=== PATIENT | female | born 1950 | race Caucasian/White ===

== ENCOUNTER → 2016-05-07 | Outpatient (CLI) | payer OTHER, MEDICARE | LOC: BMCIMAGING 11:34 | PROVIDERS: ATTEND Midwife | DX: N83.9 Noninflammatory disorder of ovary, fallopian tube and broad ligament, unspecified (principal); Z90.710 Acquired absence of both cervix and uterus ==

== ENCOUNTER → 2016-05-21 | Outpatient (CLI) | payer OTHER, MEDICARE ==
[~2016-05-21] MED LIST: GADOBUTROL 10 ML VIAL IVP ONE
[2016-05-21 13:30] LABS: CREATININE 0.8 mg/dL (0.6-1.0); GLOMERULAR FILTRATION RATE > 60
== END ==
LOC: FIMAGING 12:27
PROVIDERS: ATTEND Midwife
DX: N83.8 Other noninflammatory disorders of ovary, fallopian tube and broad ligament (principal)
CPT/HCPCS: 72197; A9585

== ENCOUNTER → 2016-11-12 | Outpatient (CLI) | payer OTHER, MEDICARE | LOC: BMCIMAGING 15:36 | PROVIDERS: ATTEND Podiatrist Foot & Ankle Surgery | DX: M21.611 Bunion of right foot (principal); M20.41 Other hammer toe(s) (acquired), right foot; M20.11 Hallux valgus (acquired), right foot; M21.41 Flat foot [pes planus] (acquired), right foot; M77.31 Calcaneal spur, right foot ==

== ENCOUNTER → 2017-04-20 | Outpatient (CLI) | payer OTHER, MEDICARE | LOC: FIMAGING 13:09 | PROVIDERS: ATTEND Obstetrics & Gynecology | DX: Z12.31 Encounter for screening mammogram for malignant neoplasm of breast (principal); Z13.820 Encounter for screening for osteoporosis; M85.80 Other specified disorders of bone density and structure, unspecified site; Z78.0 Asymptomatic menopausal state; Z80.3 Family history of malignant neoplasm of breast ==

== ENCOUNTER 2018-02-14 10:58 | Day surgery (SDC) | payer OTHER, MEDICARE ==
[2018-02-14] MEDS ORDERED: BUPIVACAINE 0.5% 30 ML SDV ONE (11:50)
[2018-02-14] MEDS ORDERED: BACITRACIN 50,000 UNITS/10 ML SYR IRR ONE (11:51)
[2018-02-14] MEDS ORDERED: LR 1,000 ML IV ONE (11:53)
[2018-02-14] MEDS ORDERED: MIDAZOLAM 2 MG/2 ML VIAL IVP ONE (13:45)
--- NOTE | 2018-02-14 13:45 | PDANEPAE ---
ANE History of Present Illness R 2nd MPJ osteotomy ANE Past Medical History - Cardiovascular History Hx Hypertension: Yes Hx Arrhythmias: No Hx Chest Pain: No Hx Coronary Artery / Peripheral Vascular Disease: No Hx CHF / Valvular Disease: No Hx Palpitations: No - Pulmonary History Hx COPD: No Hx Asthma/Reactive Airway Disease: No Hx Recent Upper Respiratory Infection: No Hx Oxygen in Use at Home: No Hx Sleep Apnea: No Sleep Apnea Screening Result - Last Documented: Negative - Neurologic History Hx Cerebrovascular Accident: No Hx Seizures: No Hx Dementia: No - Endocrine History Hx Diabetes: No - Renal History Hx Renal Disorders: No - Liver History Hx Hepatic Disorders: No - Neurological & Psychiatric Hx Hx Neurological and Psychiatric Disorders: No - Cancer History Hx Cancer: No - Congenital Disorder History Hx Congenital Disorders: No - GI History Hx Gastrointestinal Disorders: No - Other Health History Other Health History: wears glasses for reading. eczema. mild knee arthritis - Chronic Pain History Chronic Pain: No - Surgical History Prior Surgeries: hysterectomy. oopherectomy. knee arthroscopies x 2, left ANE Review of Systems Review of systems is: negative Review of Systems: - Exercise capacity METS (RN): 5 METS ANE Patient History - Allergies Allergies/Adverse Reactions: No Known Allergies Allergy (Verified 02/01/18 16:53) - Home Medications Home medications: home medication list seen and reviewed Home Medications: Lisinopril 02/24/09 [Last Taken 02/13/18] Vagifem 02/24/09 [Last Taken 02/13/18] Adult One Daily Multivit Tab 02/01/18 [Last Taken 1 Week Ago ~02/07/18] Probiotic 02/01/18 [Last Taken 3 Days Ago ~02/11/18] Vitamin D3 02/01/18 [Last Taken 1 Week Ago ~02/07/18] - NPO status NPO Since - Liquids (Date): 02/14/18 NPO Since - Liquids (Time): 08:00 NPO Since - Solids (Date): 02/13/18 NPO Since - Solids (Time): 21:00 - Anes Hx Anes Hx: post operative nausea - Smoking Hx Smoking Status: Never smoked - Family Anes Hx Family Anes Hx: none Family Hx Anesthesia Complications: none ANE Labs/Vital Signs - Vital Signs Vital Signs: reviewed preoperatively; see RN documention for details Blood Pressure: 172/99 Heart Rate: 75 Respiratory Rate: 14 O2 Sat (%): 97 Height: 160.02 cm Weight: 54.431 kg ANE Physical Exam - Airway Neck exam: FROM Mallampati Score: Class 1 Mouth exam: normal dental/mouth exam - Pulmonary Pulmonary: no respiratory distress - Cardiovascular Cardiovascular: regular rate and rhythym - ASA Status ASA Status: II ANE Anesthesia Plan Total IV Anesthesia: Yes
[2018-02-14] MEDS ORDERED: ceFAZolin 2 GM/DEXTROSE 100 ML IV ONE (13:50)
--- NOTE | 2018-02-14 13:50 | PDHPUP ---
History & Physical Update H&P update statement: This history and physical update is based on an assessment of the patient which was completed after admission or registration (within 24 hours), but prior to the surgery/procedure. H&P update: H&P reviewed & patient examined, no change in patient's condition since H&P completed
[2018-02-14] MEDS ORDERED: PROPOFOL/EMULSION 500 MG/50 ML BOTTLE IV ONE (14:16)
[2018-02-14] MEDS ORDERED: ACETAMINOPHEN 500 MG TAB PO PRN (15:31)
[2018-02-14] MEDS ORDERED: ONDANSETRON 4 MG/2 ML VIAL IVP PRN ×2 (15:31→15:47)
[2018-02-14] MEDS ORDERED: HYDROmorphONE/DILAUDID 2 MG/ML INJ IVP PRN (15:31)
[2018-02-14] MEDS ORDERED: oxyCODONE IR 5 MG TAB PO PRN (15:31)
[2018-02-14] MEDS ORDERED: fentaNYL 100 MCG/2 ML INJ IVP PRN (15:31)
[2018-02-14] MEDS ORDERED: MEPERIDINE 25 MG/0.5 ML AMP IVP PRN (15:31)
[2018-02-14] MEDS ORDERED: HYDROCODONE/APAP 5/325 TAB PO PRN (15:31)
[2018-02-14] MEDS ORDERED: DEXAMETHASONE 4 MG/ML VIAL IVP PRN (15:31)
[2018-02-14] MEDS ORDERED: NALOXONE HCL 0.4 MG/ML INJ IVP PRN (15:31)
--- NOTE | 2018-02-14 15:32 | POSTANESTH ---
Post Anesthetic Evaluation Cardiovascular Status: Normal, Stable, Similar to Pre-Op Cond Respiratory Status: Normal, Stable, Similar to Pre-op Cond. Level of Consciousness/Mental Status: Can Participate in Eval, Mildly Sleepy, Arousable Pain Control: Adequate, Prn Tx Ordered Nausea/Vomiting Control: Adequate, Prn Tx Ordered Complications Possibly Related to Anesthesia: None Noted
[2018-02-14] MEDS ORDERED: LIDOCAINE 2% 100 MG/5 ML SYR ONE (15:37)
[2018-02-14] MEDS ORDERED: ONDANSETRON DISINTEGRATING 4 MG TAB PO PRN (15:47)
[2018-02-14] MEDS ORDERED: OXYCODONE/APAP 5/325 TAB PO PRN (15:47)
[2018-02-14 17:13] VITALS: BP 155/97
--- NOTE | 2018-02-15 14:41 | GOP ---
DATE OF ADMISSION: 02/14/2018 PROJECT PROGRAM MANAGER: None. PREOPERATIVE DIAGNOSES: 1. Hallux valgus, right foot. 2. 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 4. Closed dislocation, 2nd metatarsophalangeal joint, right foot. 5. Metatarsalgia, right foot. 6. Rupture of flexor tendons, right foot. POSTOPERATIVE DIAGNOSES: 1. Hallux valgus, right foot. 2. 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 4. Closed dislocation, 2nd metatarsophalangeal joint, right foot. 5. Metatarsalgia, right foot. 6. Rupture of flexor tendons, right foot. PROCEDURES: 1. Bunionectomy, right foot. 2. First metatarsal osteotomy with bone graft, right foot. 3. First proximal phalanx osteotomy, right foot. 4. Second metatarsal osteotomy, right foot. 5. Open repair, 2nd metatarsophalangeal joint dislocation, right foot. 6. Flexor tendon repair, right foot. 7. Flexor tendon transfer, right foot. 8. Extensor tendon lengthening, right foot. ANESTHESIA: MAC with local, 30 mL of 0.5% Marcaine plain. HEMOSTASIS: Right pneumatic ankle tourniquet inflated to 250 mmHg for 59 minutes. ESTIMATED BLOOD LOSS: Zero. MATERIALS: 2.5 headless Arthrex screws x2. Nitinol staple x1. CPR kit x1. INJECTABLES: None. CONDITION: Stable. GROSS FINDINGS: Consistent with diagnosis. PROCEDURE IN DETAIL: After identification, the patient was brought into the operating room, placed o n the operating table in the supine position. Following IV sedation, local anesthesia was obtained a round the patient's right foot utilizing a total of 30 mL of 0.5% Marcaine plain. The foot was then scrubbed, prepped and draped in the usual aseptic manner. Pneumatic ankle tourniquet was placed arou nd the patient's right ankle with ample padding. An Esmarch bandage was utilized to exsanguinate the patient's right lower extremity and the pneumatic ankle tourniquet was then inflated. Attention was directed to the medial aspect of the patient's right foot, where a 5 cm linear longitud inal incision was made at the medial aspect of the 1st metatarsophalangeal joint. This incision was deepened through the subcutaneous tissue to the level of the joint capsule with care being taken to i dentify and retract all vital neurovascular structures. Bleeders were ligated and cauterized as nece ssary. A lenticular capsulorrhaphy was performed at the medial aspect of the 1st metatarsophalangeal joint. A lenticular piece of capsule was excised and passed from the operative field. Capsular str uctures were reflected dorsally and plantarly, thus exposing the 1st metatarsophalangeal joint at the operative site. A McGlamry elevator was inserted from medial to lateral in the 1st metatarsophalang eal joint, extended laterally to serve as a lateral ligamentous release. Upon completion of this man euver, the hallux was noted to be more easily translatable into a more medial corrected position. At tention was then directed to the 1st metatarsal bone, where a [id number]-eqw-[id number] Z-shaped Scarf oste otomy was performed in the head, neck and shaft of the 1st metatarsal bone. Upon completion of this [id number] osteotomy from medial to lateral, the capital fragment was translated laterally i nto a more corrected anatomic position. Following temporary fixation, 2 x 3.5 headless Arthrex screw s were driven obliquely across the osteotomy site to serve as stable fixation. Redundant medial bone shelf was excised, remodeled, and reinserted into the osteotomy site to serve as a bone graft. All redundant rough edges were smoothed with a bur. At this time, position of the 1st metatarsal was not ed to be excellent. Fixation was noted to be stable. The hallux was still in an abducted position. Decision for a 1st proximal phalanx osteotomy to be performed was made. Attention was directed to the base of the 1st proximal phalanx through the original skin incision, wh ere a medially based wedge osteotomy was performed, leaving the lateral cortex intact. This wedge of bone was excised and passed from the operative field. The osteotomy site was closed, translating th e hallux into a more medial and corrected anatomic position. A Nitinol staple was driven obliquely a cross this osteotomy site to serve as stable fixation. The incision site was then flushed with normal sterile saline solution. Capsular structures were kaleb pproximated utilizing 2-0 Vicryl, subcutaneous tissue reapproximated utilizing 3-0 Vicryl and skin re approximated utilizing 5-0 Vicryl in a running subcuticular suture technique. Attention was directed to the dorsal aspect of the patient's right foot, where a 4 cm linear longitud inal incision was made over the dorsal aspect of the 2nd metatarsophalangeal joint. This incision wa s deepened through the subcutaneous tissue to the level of the joint capsule with care being taken to identify and retract all vital neurovascular structures. A linear capsulotomy was performed at the dorsal aspect of the 2nd metatarsophalangeal joint. Capsular structures were reflected medially and laterally, thus exposing the 2nd metatarsophalangeal joint at the operative site. It was noted that the extensor digitorum longus tendon was pathologically tight, and a Z-lengthening procedure was perf ormed. The tendon was then reapproximated under physiologic tension and secured using 2-0 Vicryl. A n oblique Fawn 2nd metatarsal osteotomy was performed from dorsal distal to plantar proximal in the h ead, neck and shaft of the 2nd metatarsal bone. Capital fragment was translated proximally and tempo rarily fixated out of the way, thus exposing the plantar structures at the 2nd metatarsophalangeal derrek int. The plantar plate structure was noted to be approximately 40% torn. A completion of this tear was performed sharply, thus exposing the flexor tendon apparatus, which was also damaged and partiall y torn. Flexor tendons were directly repaired using 3-0 Vicryl. A suture-gathering instrument was u sed to gather both the flexor tendon apparatus as well as the plantar plate structure. A horizontal mattress suture was placed in both of these structures. The suture passed through 2 crossing drill h oles in the base of the 2nd proximal phalanx. The 2nd metatarsal was then brought back out to physio logic length, approximately 3 mm shorter than it was prior to surgery. Following temporary fixation, 2 x 2.0 Arthrex snap-off screws were driven obliquely across the osteotomy site to serve as stable f ixation. Redundant medial bone was excised with a bone bur. The sutures which were used to gather t he plantar plate and flexor tendon were then pulled taut, thus translating the plantar plate and flex or tendon structure to the base of the 2nd proximal phalanx. These sutures were then tied upon one a nother at the dorsal aspect of the bone, securing the transfer of the tendon and plantar plate struct ure. At this time, the toe and 2nd metatarsophalangeal joint were noted to be relocated and in physi ologic position. The incision site was then flushed with normal sterile saline solution. Capsular structures were lisy roximated utilizing 3-0 Vicryl, subcutaneous tissue reapproximated utilizing 3-0 Vicryl and the skin reapproximated utilizing 5-0 Vicryl in a running subcuticular suture technique. The incision sites w ere then dressed with Steri-Strips, Bonner silk, 4 x 4 gauze, Webril, Sera, Seferino bandage. The patient was then transported to the postoperative recovery area with vital signs stable and vascular status intact to the right foot. Patient tolerated the procedure and anesthesia well. /[id number]/MODL
== END 2018-02-14 17:00 | disposition home or self-care (01) ==
LOC: FSGY 10:58
PROVIDERS: ATTEND Podiatrist
PROC: 0QBN0ZZ Excision of Right Metatarsal, Open Approach (ICD-10-PCS; principal; 2018-02-14 12:30)
PROC: 0SSM0ZZ Reposition Right Metatarsal-Phalangeal Joint, Open Approach (ICD-10-PCS; principal; 2018-02-14 12:30)
PROC: 0QSN04Z Reposition Right Metatarsal with Internal Fixation Device, Open Approach (ICD-10-PCS; principal; 2018-02-14 12:30)
PROC: 0LXV0ZZ Transfer Right Foot Tendon, Open Approach (ICD-10-PCS; principal; 2018-02-14 12:30)
DX: M20.11 Hallux valgus (acquired), right foot (principal); Q66.89 Other specified congenital deformities of feet; M77.41 Metatarsalgia, right foot; S93.124A Dislocation of metatarsophalangeal joint of right lesser toe(s), initial encounter; M67.371 Transient synovitis, right ankle and foot; Q66.21 Congenital metatarsus primus varus; I10 Essential (primary) hypertension
CPT/HCPCS: C1713; J0690; J2001; J2250; J2704

== ENCOUNTER → 2018-05-10 | Outpatient (CLI) | payer OTHER, MEDICARE | LOC: FIMAGING 14:07 | PROVIDERS: ATTEND Obstetrics & Gynecology | DX: Z12.31 Encounter for screening mammogram for malignant neoplasm of breast (principal); Z80.3 Family history of malignant neoplasm of breast ==